=== PATIENT | female | born 2000 | race Caucasian/White ===

== ENCOUNTER 2023-07-06 21:50 | Emergency (ER) | payer OTHER ==
[2023-07-06 21:57] VITALS: BP 124/76; PULSE 81; RESP 18; TEMP 98; BMI 29.2
[2023-07-06] MEDS ORDERED: ACETAMINOPHEN 325 MG TABLET (FP) ONE (22:39)
[2023-07-06] MEDS: ACETAMINOPHEN 500 MG TABLET (FP) PO ONE (22:43)
== END 2023-07-07 00:03 | disposition home or self-care (01) ==
LOC: JER 21:50
DX: M62.838 Other muscle spasm (principal); M54.2 Cervicalgia; R51.9 Headache, unspecified; R07.89 Other chest pain; M25.551 Pain in right hip; V43.62XA Car passenger injured in collision with other type car in traffic accident, initial encounter
CPT/HCPCS: 70450-TC; 71046-TC-FY; 72125-TC; 84703; 99284-25